=== PATIENT | female | born 1960 | race African-American/Black ===

== ENCOUNTER 2017-10-14 09:52 | Inpatient (IN) ==
[2017-10-14] MEDS ORDERED: SODIUM CHLORIDE 0.9% 500 ML IV STA (10:02)
[2017-10-14 10:46] LABS: Basophils % 0.5 % (0.0-0.8); Eosinophils # 0.1 10*3/uL (0.0-0.87); Eosinophils % 3.3 % (0.00-10.9); Hematocrit 36.3 VOL% (35.7-47.0); Hemoglobin 12.1 GM/DL (12.0-16.0); Immature Granulocytes % 0.2 %; Immature Granulocytes Absolute 0.01 #; Lymphocytes # 1.9 10*3/uL (1.4-4.0); Lymphocytes % 44.4 % (21.3-54.2); Mean Corpuscular HGB Conc 33.3 GM/DL (32-36); Mean Corpuscular Hemoglobin 30 PG (27-34); Mean Platelet Volume 10.7 FL (9.6-12.0); Monocytes # 0.3 10*3/uL (0.11-0.8); Monocytes % 7.6 % (1.7-12.7); Neutrophils # 1.8 10*3/uL (1.4-7.4); Platelet Count 235 T/CUMM (130-400); Red Blood Count 3.99 MC/CUMM (3.8-5.5); Red Cell Distribution Width 13.8 % (9.3-17.3); White Blood Count 4.2 T/CUMM (4-12)
[2017-10-14 10:56] LABS: PT Patient Result 10.5 SECS; Partial Thromboplastin Time 26.4 SECS (0-40)
[2017-10-14 11:04] LABS: Ammonia 43 UMOL/L (11-32)
[2017-10-14 11:08] LABS: Alanine Aminotransferase 11 U/L (13-56); Albumin 3.5 G/DL (3.4-5.0); Alkaline Phosphatase 68 U/L (45-117); Aspartate Amino Transferase 9 U/L (0-37); Bilirubin,Total < 0.39 MG/DL (0.2-1.0); Blood Urea Nitrogen 23 MG/DL (7-18); Calcium 8.8 MG/DL (8.5-10.1); Glucose 117 MG/DL (74-106); Sodium 143 MMOL/L (136-145); Total Protein 6.6 G/DL (6.4-8.3)
[2017-10-14 12:05] LABS: Apearance,Urine CLEAR (Clear); Bilirubin,Urine Negative (Negative); Blood, Urine Negative (Negative); Glucose,Urine (UA) Negative (Negative); Hyaline Casts,Urine 3 /LPF (0-3); Ketones,Urine Negative (Negative); Mucus,Urine Occasional /LPF (Occasional); Nitrite,Urine Negative (Negative); Protein,Urine Negative; RBC,Urine 1 /HPF (0-4); Urine Color Yellow (Yellow); Urine Specific Gravity 1.018 (1.001-1.035); Urine Urobilinogen < 2.0 EU/DL (0.2-1.0); WBC,Urine 1 /HPF (0-6)
[2017-10-14 12:09] LABS: Barbiturates Screen,Urine Positive (Negative); Benzodiazepines Screen,Urine Negative (Negative); Cannabinoid Screen,Urine Negative (Negative); Opiate Screen,Urine Negative (Negative); Phencyclidine Screen,Urine Negative (Negative)
[2017-10-14] MEDS ORDERED: GLUCAGON 1 MG VIAL IM PRN (12:47)
[2017-10-14] MEDS ORDERED: DEXTROSE 50% 25 GM/50 ML VIAL IV PRN (12:47)
[2017-10-14 13:46] LABS: Cholesterol 219 MG/DL (50-200); HDL Cholesterol 62 MG/DL (40-60); Risk Ratio 3.53; Triglycerides 88 MG/DL (2-150); Troponin I Only < 0.015 NG/ML (0.00-0.045); VLDL CHOLESTEROL 17.6 MG/DL
[2017-10-14] MEDS: INSULIN REGULAR 100 UNIT/ML SUBCUT SCH ×2 (16:09→20:45)
[2017-10-14] MEDS: PANTOPRAZOLE 40 MG TABLET PO SCH (17:32)
[2017-10-14] MEDS: FLUTICASONE/SALMETEROL 250-50 DISKUS 14 DOSE INH SCH (20:44)
[2017-10-14] MEDS: CARVEDILOL 6.25 MG TABLET PO SCH (20:44)
[2017-10-14] MEDS: metFORMIN 500 MG TABLET PO SCH (20:45)
[2017-10-14] MEDS: traZODone 50 MG TABLET PO SCH (20:45)
[2017-10-14] MEDS: GABAPENTIN 600 MG TABLET PO SCH (20:45)
[2017-10-14] MEDS: PRAVASTATIN 40 MG TABLET PO SCH (20:45)
[2017-10-14] MEDS: ALPRAZolam 0.25 MG TABLET PO SCH (20:45)
[2017-10-14] MEDS ORDERED: LISINOPRIL 5 MG TABLET PO SCH (21:00)
[2017-10-14] MEDS ORDERED: ONDANSETRON 4 MG/2 ML VIAL IV PRN (21:32)
[2017-10-15 06:24] LABS: Basophils % 0.4 % (0.0-0.8); Eosinophils # 0.1 10*3/uL (0.0-0.87); Eosinophils % 2.4 % (0.00-10.9); Hematocrit 39.5 VOL% (35.7-47.0); Immature Granulocytes % 0.2 %; Immature Granulocytes Absolute 0.01 #; Lymphocytes # 2.1 10*3/uL (1.4-4.0); Lymphocytes % 46.9 % (21.3-54.2); Mean Corpuscular HGB Conc 32.9 GM/DL (32-36); Mean Corpuscular Hemoglobin 30 PG (27-34); Mean Corpuscular Volume 91.6 FL (87-102); Mean Platelet Volume 10.5 FL (9.6-12.0); Monocytes # 0.3 10*3/uL (0.11-0.8); Monocytes % 7.3 % (1.7-12.7); Neutrophils # 1.9 10*3/uL (1.4-7.4); Neutrophils % 42.8 % (38.7-73.9); Platelet Count 221 T/CUMM (130-400); Red Blood Count 4.31 MC/CUMM (3.8-5.5); Red Cell Distribution Width 13.2 % (9.3-17.3); White Blood Count 4.5 T/CUMM (4-12)
[2017-10-15 06:56] LABS: Albumin 3.3 G/DL (3.4-5.0); Bilirubin,Total 0.6 MG/DL (0.2-1.0); Calcium 8.8 MG/DL (8.5-10.1); Osmolality,Calculated 278.4 MOS/KG (273-304); Potassium 3.8 MMOL/L (3.5-5.1); Total Protein 6.3 G/DL (6.4-8.3)
[2017-10-15] MEDS: INSULIN REGULAR 100 UNIT/ML SUBCUT SCH ×4 (09:40→21:01)
[2017-10-15] MEDS: ESCITALOPRAM 10 MG TABLET PO SCH ×2 (11:12→16:03)
[2017-10-15] MEDS: CARVEDILOL 6.25 MG TABLET PO SCH ×2 (11:12→21:06)
[2017-10-15] MEDS: ASPIRIN EC 81 MG TABLET PO SCH ×2 (11:12→16:02)
[2017-10-15] MEDS: FLUTICASONE/SALMETEROL 250-50 DISKUS 14 DOSE INH SCH ×2 (11:12→21:09)
[2017-10-15] MEDS: ISOSORBIDE DINITRATE 10 MG TABLET PO SCH ×2 (11:12→15:58)
[2017-10-15] MEDS: hydroCHLOROthiazide 12.5 MG CAPSULE PO SCH ×2 (11:12→16:03)
[2017-10-15] MEDS: metFORMIN 500 MG TABLET PO SCH ×2 (11:12→21:07)
[2017-10-15] MEDS: DIVALPROEX ER 250 MG TABLET PO SCH ×2 (11:12→11:51)
[2017-10-15] MEDS: amLODIPine 5 MG TABLET PO SCH ×2 (11:13→16:03)
[2017-10-15] MEDS: GABAPENTIN 600 MG TABLET PO SCH ×3 (11:13→21:05)
[2017-10-15] MEDS: PANTOPRAZOLE 40 MG TABLET PO SCH ×2 (11:13→16:03)
[2017-10-15] MEDS: ALPRAZolam 0.25 MG TABLET PO SCH ×2 (11:13→21:06)
[2017-10-15] MEDS: LINACLOTIDE 145 MCG CAPSULE PO SCH (11:13)
[2017-10-15] MEDS: CLOPIDOGREL 75 MG TABLET PO SCH ×2 (11:13→16:03)
[2017-10-15] MEDS: BUTALBITAL/ACETAMIN/CAFFEINE 50-325-40 MG TABLET PO PRN (11:51)
[2017-10-15] MEDS: PRAVASTATIN 40 MG TABLET PO SCH (21:06)
[2017-10-15] MEDS: traZODone 50 MG TABLET PO SCH (21:06)
[2017-10-15] MEDS: hydrALAZINE 10 MG TABLET PO SCH (21:06)
[2017-10-16 06:55] LABS: Basophils % 0.2 % (0.0-0.8); Eosinophils # 0.1 10*3/uL (0.0-0.87); Eosinophils % 2.4 % (0.00-10.9); Hematocrit 40.2 VOL% (35.7-47.0); Hemoglobin 13.2 GM/DL (12.0-16.0); Immature Granulocytes % 0.2 %; Immature Granulocytes Absolute 0.01 #; Lymphocytes # 2.3 10*3/uL (1.4-4.0); Lymphocytes % 41.5 % (21.3-54.2); Mean Corpuscular HGB Conc 32.8 GM/DL (32-36); Mean Corpuscular Hemoglobin 30 PG (27-34); Mean Corpuscular Volume 90.5 FL (87-102); Mean Platelet Volume 10.5 FL (9.6-12.0); Monocytes # 0.5 10*3/uL (0.11-0.8); Monocytes % 9.5 % (1.7-12.7); Neutrophils # 2.5 10*3/uL (1.4-7.4); Neutrophils % 46.2 % (38.7-73.9); Platelet Count 242 T/CUMM (130-400); Red Blood Count 4.44 MC/CUMM (3.8-5.5); Red Cell Distribution Width 13.2 % (9.3-17.3); White Blood Count 5.5 T/CUMM (4-12)
[2017-10-16 07:30] LABS: Albumin 3.4 G/DL (3.4-5.0); Bilirubin,Total 0.4 MG/DL (0.2-1.0); Osmolality,Calculated 282.4 MOS/KG (273-304); Potassium 3.8 MMOL/L (3.5-5.1); Total Protein 6.8 G/DL (6.4-8.3)
[2017-10-16] MEDS: ISOSORBIDE DINITRATE 10 MG TABLET PO SCH (08:44)
[2017-10-16] MEDS: amLODIPine 5 MG TABLET PO SCH (08:45)
[2017-10-16] MEDS: CARVEDILOL 6.25 MG TABLET PO SCH (08:45)
[2017-10-16] MEDS: GABAPENTIN 600 MG TABLET PO SCH (08:46)
[2017-10-16] MEDS: metFORMIN 500 MG TABLET PO SCH (08:46)
[2017-10-16] MEDS: PANTOPRAZOLE 40 MG TABLET PO SCH (08:46)
[2017-10-16] MEDS: hydroCHLOROthiazide 12.5 MG CAPSULE PO SCH (08:46)
[2017-10-16] MEDS: LINACLOTIDE 145 MCG CAPSULE PO SCH (08:46)
[2017-10-16] MEDS: ESCITALOPRAM 10 MG TABLET PO SCH (08:46)
[2017-10-16] MEDS: CLOPIDOGREL 75 MG TABLET PO SCH (08:46)
[2017-10-16] MEDS: ALPRAZolam 0.25 MG TABLET PO SCH (08:46)
[2017-10-16] MEDS: ASPIRIN EC 81 MG TABLET PO SCH (08:46)
[2017-10-16] MEDS: DIVALPROEX ER 250 MG TABLET PO SCH (08:47)
[2017-10-16] MEDS: FLUTICASONE/SALMETEROL 250-50 DISKUS 14 DOSE INH SCH (08:50)
[2017-10-16] MEDS: BUTALBITAL/ACETAMIN/CAFFEINE 50-325-40 MG TABLET PO PRN (08:55)
[2017-10-16] MEDS: INSULIN REGULAR 100 UNIT/ML SUBCUT SCH ×2 (08:56→11:40)
[2017-10-16] MEDS: hydrALAZINE 10 MG TABLET PO SCH (08:56)
[2017-10-16] MEDS ORDERED: CLOPIDOGREL 75 MG TABLET PO SCH (09:00)
[2017-10-16 11:58] VITALS: BP 103/66
== END 2017-10-16 13:48 | disposition home or self-care (01) | DRG 861 ==
LOC: EDUNIT# → EDBD → N.ED 09:52 → N.EDINP 12:36 → N.2E 15:39
PROVIDERS: ADMIT Hospitalist; ATTEND Hospitalist